=== PATIENT | male | born 1990 | race Caucasian/White ===

== ENCOUNTER → 2023-12-05 | Outpatient (CLI) | payer MEDICAID ==
[~2023-12-05] MED LIST: AMOXIL400 MG/5 M PO; LAMICTAL25 MG PO; MIRTAZAPINE15 M1; RISPERDAL1 MG; TYLENOL160 MG PO; TYLENOL650 MG R; VALIUM10 MG PO
== END | disposition home or self-care (01) ==
LOC: US 11-30 10:00
PROVIDERS: ATTEND Internal Medicine
DX: K82.4 Cholesterolosis of gallbladder (principal); R16.1 Splenomegaly, not elsewhere classified; R79.89 Other specified abnormal findings of blood chemistry